=== PATIENT | male | born 1975 | race Caucasian/White ===

== ENCOUNTER → 2019-01-19 | Outpatient (CLI) | payer BC ==
--- NOTE | 2019-01-19 10:29 | Diagnostic Imaging Report ---
PROCEDURE: US Hepatic (Liver). TECHNIQUE: Multiple real-time grayscale images were obtained over the right upper quadrant in various projections. INDICATION: Elevated liver enzymes. FINDINGS: The liver is enlarged at 21.9 cm. There is diffuse increased echogenicity throughout the liver consistent with hepatic steatosis. The portal vein is patent and shows normal direction of flow. No discrete liver mass is identified. Gallbladder is without stones or sludge. No wall thickening or biliary ductal dilatation is seen. The pancreas is poorly visualized due to bowel gas. Right kidney is without calculi or hydronephrosis. There is no ascites. IMPRESSION: 1. Hepatomegaly and hepatic steatosis. 2. No evidence of cholelithiasis or acute cholecystitis. Dictated by: Dictated on workstation # [id number]
== END ==
LOC: RAD 08:03
PROVIDERS: ATTEND Family Medicine
DX: K76.0 Fatty (change of) liver, not elsewhere classified (principal); R94.5 Abnormal results of liver function studies
CPT/HCPCS: 76705

== ENCOUNTER → 2021-02-05 | Outpatient (CLI) | payer BC ==
[~2021-02-05] VITALS: Ht 190.5 cm; Wt 104.0 kg
[~2021-02-05] MED LIST: HYDR25TA4 PO; LOSA100T57 PO
== END ==
LOC: PREOP 13:29
PROVIDERS: ATTEND Internal Medicine
DX: Z01.818 Encounter for other preprocedural examination (principal)

== ENCOUNTER 2021-02-14 08:30 | Day surgery (SDC) | payer BC ==
--- NOTE | 2021-02-06 07:24 | HISTORY AND PHYSICAL ---
DATE OF SERVICE: COLONOSCOPY HISTORY AND PHYSICAL DATE OF ADMISSION: ____. HISTORY OF PRESENT ILLNESS: The patient is a 45-year-old white male referred for his first screening colonoscopy by Dr. Velasquez. He reports that his father was diagnosed with colon polyps at the age of 85. He denies abdominal pain, bright red blood per rectum or melena. He has had no change in bowel habits and denies any chronic problems with diarrhea or hypertension. PAST MEDICAL HISTORY: Significant for hypertension for which he takes hydrochlorothiazide 25 mg daily. His only prescription medication. ALLERGIES: He reports no known drug allergies. PAST SURGICAL HISTORY: In his 30s, he had hemorrhoid surgery, as a child had a tonsillectomy and adenoidectomy and has had two wisdom teeth extracted. 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 REVIEW OF SYSTEMS: CONSTITUTIONAL: The patient denies night sweats, chills, fever, change in weight. PULMONARY: Denies cough, wheezing or shortness of breath. CARDIOVASCULAR: The patient denies chest pain, orthopnea, PND or pedal edema. GASTROINTESTINAL: As noted in the HPI. PHYSICAL EXAMINATION: GENERAL: Reveals a white male, appeared to be in no acute distress. VITAL SIGNS: Weight is 260 pounds and blood pressure 126/80. HEENT: Unremarkable. CHEST: Clear. CARDIOVASCULAR: Reveals a regular rate and rhythm without murmur, S3 or S4. ABDOMEN: Soft, supple without mass, organomegaly or tenderness. Small reducible umbilical hernia noted. EXTREMITIES: Reveal no cyanosis, clubbing or edema. ASSESSMENT AND PLAN: The patient is set up for his first screening colonoscopy. Prep instructions with the Suprep kit were given and questions were answered. I thank you for the referral of this pleasant gentleman. Job ID: [id number] DocumentID: [id number] Dictated Date: 02/03/2021 16:23:21 Real Estate Associate Attorney Date: 02/03/2021 17:48:46 Dictated By: AMY NAGY MD
[~2021-02-14] VITALS: Ht 190.5 cm; Wt 104.0 kg
[2021-02-14] MEDS ORDERED: LACTATED RINGERS 1,000 ML IV STA (08:33)
[2021-02-14] MEDS ORDERED: LACTATED RINGERS 1,000 ML IV ONE (08:35)
[2021-02-14] MEDS ORDERED: LIDOCAINE JELLY 2% 6 ML SYRINGE MM PRN (08:45)
[2021-02-14 08:49] VITALS: BP 115/89
--- NOTE | 2021-02-14 08:58 | Pre-Op Note & Conscious Sedat ---
Pre-Operative Progress Note H&P Reviewed The H&P was reviewed, patient examined and no changes noted. Date H&P Reviewed: Feb 14, 2021 Time H&P Reviewed: 08:58 Conscious Sedation Pre-Proced ASA Score 2 For ASA 3 and 4: Consider anesthesia and medical clearance. Also, for patients with a history of failed moderate sedation consider anesthesia. Airway Lungs Heart ASA score ASA 1: a normal healthy patient ASA 2: a patient with a mild systemic disease (mid diabetes, controlled hypertension, obesity ASA 3: a patient with a severe systemic disease that limits activity (angina, COPD, prior Myocardial infarction) ASA 4: a patient with an incapacitating disease that is a constant threat to life (CHF, renal failure) ASA 5: a moribund patient not expected to survive 24 hrs. (ruptured aneurysm) ASA 6: a declared brain- patient whose organs are being harvested. For emergent operations, add the letter E after the classification Mallampati Classification Grade 2 Sedation Plan Analgesia, Amnesia, Plan communicated to team members, Discussed options with patient/fam, Discussed risks with patient/fam The patient is an appropriate candidate to undergo the planned procedure, sedation, and anesthesia. The patient immediately re-assessed prior to indication. AMY NAGY MD Feb 14, 2021 08:58
[2021-02-14] MEDS ORDERED: PROPOFOL INJECTION 50 ML IV ONE (09:31)
[2021-02-14] MEDS ORDERED: MIDAZOLAM 2 MG/2 ML (VERSED) VIAL ONE (09:31)
[2021-02-14 10:10] VITALS: BP 114/72
[2021-02-14 10:15] VITALS: BP 122/74
[2021-02-14 10:20] VITALS: BP_SYST 117; BP_SYST 121; BP_DIAS 71
[2021-02-14 10:40] VITALS: BP 118/82
[2021-02-14 10:45] VITALS: BP 118/82
--- NOTE | 2021-02-14 14:43 | Anesthesia-General Post-Op ---
MAC Patient Condition Mental Status/LOC: Same as Preop Cardiovascular: Satisfactory Nausea/Vomiting: Absent Respiratory: Satisfactory Pain: Controlled Complications: Absent Post Op Complications Complications None Follow Up Care/Instructions Patient Instructions None needed. Anesthesiology Discharge Order Discharge Order Patient is doing well, no complaints, stable vital signs, no apparent adverse anesthesia problems. No complications reported per nursing. CHIQUI SAINI CRNA Feb 14, 2021 14:43
--- NOTE | 2021-02-14 14:59 | OPERATIVE REPORT ---
DATE OF SERVICE: COLONOSCOPY SUMMARY INDICATION FOR THE PROCEDURE: Screening colonoscopy. The patient was placed in the left lateral decubitus position. Prior to undergoing colonoscopy, digital rectal evaluation was performed. Anal sphincter tone was normal and the perianal reflexes intact. Prostate was anodular, nontender to digital inspection, normal in size. No abnormalities were noted on digital inspection of anal canal or distal rectal vault. The colonoscope was then inserted into the rectum and under direct visualization advanced to cecum. The cecum was identified by identification of the ileocecal valve and cecal strap. Photographic documentation was obtained. Careful inspection was made as the colonoscope was withdrawn. The patient tolerated the procedure well. FINDINGS: There was no evidence for internal or external hemorrhoids and the rectum, sigmoid colon, descending colon, splenic flexure, transverse colon, hepatic flexure, ascending colon and cecum were unremarkable. ASSESSMENT: Normal colonoscopy to the cecum with normal digital evaluation of the prostate. As the patient is not aware of any family history for colon cancer, we would advocate consideration for repeat screening colonoscopy in 10 years. I thank you for the referral of this pleasant gentleman. Job ID: [id number] DocumentID: [id number] Dictated Date: 02/14/2021 10:05:48 [employer] Fabricator Date: 02/14/2021 14:58:46 Dictated By: AMY NAGY MD
== END 2021-02-14 10:45 | disposition home or self-care (01) ==
LOC: ENDO 08:30
PROVIDERS: ATTEND Internal Medicine
DX: Z12.11 Encounter for screening for malignant neoplasm of colon (principal); I10 Essential (primary) hypertension; K42.9 Umbilical hernia without obstruction or gangrene; K21.9 Gastro-esophageal reflux disease without esophagitis; Z83.71 Family history of colonic polyps; Z79.899 Other long term (current) drug therapy